=== PATIENT | female | born 1995 | race Caucasian/White ===

== ENCOUNTER 2020-06-08 11:35 | Emergency (ER) | payer MEDICAID ==
[~2020-06-08] VITALS: Ht 170.2 cm; Wt 60.8 kg
[2020-06-08 11:36] VITALS: BP 173/107
--- NOTE | 2020-06-08 11:50 | NUR ---
URINE CLEAN CATCH SENT TO LAB
[2020-06-08 12:19] LABS: BASOPHILS % (AUTO) 1 % (0-1); EOSINOPHILS % (AUTO) 1 % (1-7); LYMPHOCYTES % (AUTO) 28 % (22-44); MEAN CORPUSCULAR HEMOGLOBIN 31.1 pg (27.0-34.8); MEAN CORPUSCULAR HGB CONC 33.8 g/dL (32.4-35.8); MEAN PLATELET VOLUME 8.5 fL (7.4-10.4); MONOCYTES % (AUTO) 8 % (2-9); NEUTROPHILS % (AUTO) 62 % (42-75); PLATELET COUNT 368 x10^3/uL (130-400); RED BLOOD COUNT 4.29 x10^6/uL (3.82-5.3); RED CELL DISTRIBUTION WIDTH 13.1 % (9.6-15.2)
[2020-06-08 12:23] LABS: ALANINE AMINOTRANSFERASE 18 U/L (12-78); ALBUMIN 3.9 g/dL (3.4-5.0); ANION GAP 4 mmol/L (5-15); CALCIUM 8.6 mg/dL (8.5-10.1); CHLORIDE 106 mmol/L (98-107); CREATININE 0.82 mg/dL (0.55-1.02)
[2020-06-08 12:27] LABS: ALKALINE PHOSPHATASE 64 U/L (45-117); BILIRUBIN,TOTAL 0.4 mg/dL (0.2-1.0); MD NO; TOTAL PROTEIN 8.1 g/dL (6.4-8.2)
--- NOTE | 2020-06-08 12:58 | NUR ---
GENERAL FARMER: CALLED FOR ROOM, NO ANSWER
--- NOTE | 2020-06-08 14:36 | NUR ---
NO ANSWER X2 IN LOBBY
== END 2020-06-08 14:55 | disposition left against medical advice (07) ==
LOC: ED 13:30
DX: R10.9 Unspecified abdominal pain (principal); R07.89 Other chest pain
CPT/HCPCS: 36415; 71045; 80053; 83690; 84703; 85025; 99284

== ENCOUNTER 2020-12-08 19:24 | Inpatient (IN) | payer MEDICAID, OTHER ==
[~2020-12-08] VITALS: Ht 170.2 cm; Wt 68.7 kg
[2020-12-08] MEDS ORDERED: SODIUM CHLORIDE 0.9% 1,000ML IVBOLUS ONE ×2 (20:30→21:30)
[2020-12-08 20:53] LABS: MEAN CORPUSCULAR HEMOGLOBIN 31.5 pg (27.0-34.8); MEAN CORPUSCULAR HGB CONC 34.2 g/dL (32.4-35.8); MEAN PLATELET VOLUME 9.3 fL (7.4-10.4); PLATELET COUNT 278 x10^3/uL (130-400); RED BLOOD COUNT 4.86 x10^6/uL (3.82-5.3); RED CELL DISTRIBUTION WIDTH 13.6 % (9.6-15.2)
--- NOTE | 2020-12-08 21:02 | NUR ---
pt reports she was recently seen at [facility] for difficulty breathing and bilat rib pain. reports she has had these symptoms for 2 weeks. she was sent home from with abx and other meds with no imporvement. pt also has c/o decresaed urination for 2 weeks also. pt attached to all monitors, 2 L NC to address hypoxia. PIV placed and all labs drawn. 2 sets of blood cultures also drawn. pt family at bedside.
[2020-12-08 21:03] LABS: ALANINE AMINOTRANSFERASE 13 U/L (12-78); ALBUMIN 3.2 g/dL (3.4-5.0); ANION GAP 16 mmol/L (5-15); CALCIUM 8.5 mg/dL (8.5-10.1); CHLORIDE 94 mmol/L (98-107); CREATININE 2.64 mg/dL (0.55-1.02)
[2020-12-08 21:08] LABS: ALKALINE PHOSPHATASE 69 U/L (45-117); BILIRUBIN,TOTAL 0.7 mg/dL (0.2-1.0); TOTAL PROTEIN 7.6 g/dL (6.4-8.2); TROPONIN I < 0.015 ng/mL (0.000-0.045)
--- NOTE | 2020-12-08 21:20 | NUR ---
dr patrick notified ct to do scans w/o contrast d/t impaired renal function
[2020-12-08 21:23] LABS: BAND#(MANUAL) 0.64 x10^3/uL; BANDS%(MANUAL) 8 % (0-7); LYMPHS% (MANUAL) 15 % (22-44); MONOS#(MANUAL) 0.16 x10^3/uL (0.3-2.7); MONOS% (MANUAL) 2 % (2-9); MYELOCYTES# (MANUAL) 0.08 x10^3/uL (0-0); MYELOCYTES% (MANUAL) 1 % (0-0); SEG#(MANUAL) 5.92 x10^3/uL (1.8-6.8); SEGS% (MANUAL) 74 % (42-75)
[2020-12-08 21:27] LABS: <PLATELET ESTIMATE> ADEQUATE; <RBC MORPHOLOGY> NORMAL; PMNS WITH VACUOLES 1+; TOXIC GRAN 1+
[2020-12-08 21:28] LABS: LARGE PLATELETS 1+
[2020-12-08] MEDS ORDERED: PIPERACILLIN/TAZO 3.375 GM in DEXTROSE 5% 50 ML IVPB ONE (21:30)
[2020-12-08] MEDS ORDERED: VANCOMYCIN PER PHARMACY MC ONE (21:30)
[2020-12-08] MEDS ORDERED: VANCOMYCIN 1,400 MG in SODIUM CHLORIDE 0.9% 250 ML IV ONE (22:00)
[2020-12-08] MEDS ORDERED: MORPHINE SULFATE 4 MG/ML, 1ML ONE (22:08)
[2020-12-08] MEDS ORDERED: ONDANSETRON 2MG/ML, 2ML ONE (22:08)
[2020-12-08 22:28] LABS: MICROSCOPIC INDICATED
[2020-12-08] MEDS ORDERED: MORPHINE SULFATE 4 MG/ML, 1ML IVPush ONE (22:30)
[2020-12-08] MEDS ORDERED: ONDANSETRON 2MG/ML, 2ML IVPush ONE (22:30)
[2020-12-08] MEDS ORDERED: HYDROmorphone 1 MG/ML, 1ML INJ ONE (22:48)
[2020-12-08 22:49] LABS: AMPHETAMINE SCREEN, URINE Positive (Negative); BARBITURATE SCREEN, URINE Negative (Negative); BENZODIAZEPINE SCREEN, URINE Negative (Negative); CANNABINOID SCREEN, URINE Positive (Negative); COCAINE SCREEN, URINE Negative (Negative); METHADONE SCREEN, URINE Negative (Negative); OPIATE SCREEN, URINE Negative (Negative)
--- NOTE | 2020-12-08 22:52 | NUR ---
pt reports no pain relief after morphine. orders recieved from dr patrick for dilaudid and pt medicated for pain a second time.
[2020-12-08] MEDS ORDERED: HYDROmorphone 1 MG/ML, 1ML INJ IV ONE (23:00)
[2020-12-08] MEDS ORDERED: MIDAZOLAM 1 MG/ML, 2ML ONE (23:10)
[2020-12-08] MEDS ORDERED: FENTANYL PF 250 MCG/5ML ONE (23:10)
--- NOTE | 2020-12-08 23:16 | NUR ---
PT REPORTS IMPROVED PAIN.
--- NOTE | 2020-12-08 23:19 | NUR ---
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
[2020-12-08] MEDS ORDERED: ALBUTEROL SULFATE 2.5 MG/3 ML NPPB PRN (23:30)
[2020-12-08] MEDS ORDERED: hydrALAzine 20 MG/ML, 1ML IV PRN (23:30)
[2020-12-08] MEDS ORDERED: LORazepam 2 MG/ML, 1ML IVPush PRN (23:30)
[2020-12-08] MEDS ORDERED: LABETALOL 5MG/ML, 20ML IV PRN (23:30)
[2020-12-08] MEDS ORDERED: MEPERIDINE/PF 25MG/0.5ML IVPush PRN (23:30)
[2020-12-08] MEDS ORDERED: PROMETHAZINE 25 MG/ML, 1ML IVPush PRN (23:30)
[2020-12-08] MEDS ORDERED: FENTANYL PF 100 MCG/2ML IV PRN (23:30)
[2020-12-08] MEDS ORDERED: HYDROmorphone 1 MG/ML, 1ML INJ IVPush PRN (23:30)
[2020-12-09] MEDS ORDERED: VANCOMYCIN PER PHARMACY MC PRN
[2020-12-09] MEDS ORDERED: PHARMACY MAY ADJ FOR RENAL FX MC PRN (00:30)
[2020-12-09] MEDS ORDERED: ROCURONIUM 10MG/ML,5ML ONE (00:48)
[2020-12-09] MEDS ORDERED: SUGAMMADEX 200 MG/2 ML IVPush ONE (00:48)
[2020-12-09] MEDS ORDERED: SUCCINYLCHOLINE 20 MG/ML, 10ML ONE (00:48)
[2020-12-09] MEDS ORDERED: ONDANSETRON 2MG/ML, 2ML ONE (00:48)
[2020-12-09] MEDS ORDERED: PROPOFOL 10 MG/ML, 20ML ONE (00:48)
[2020-12-09] MEDS ORDERED: CEFAZOLIN 1,000 MG ONE (00:48)
[2020-12-09] MEDS ORDERED: FENTANYL PF 100 MCG/2ML ONE (01:26)
[2020-12-09] MEDS ORDERED: MEPERIDINE/PF 25MG/ML,1ML ONE (01:26)
[2020-12-09] MEDS ORDERED: LABETALOL 5MG/ML, 20ML IVPush PRN (02:00)
[2020-12-09 02:15] VITALS: BP 100/66
[2020-12-09] MEDS ORDERED: PHARMACOKINETIC MONITORING MC PRN (03:00)
[2020-12-09] MEDS ORDERED: PHARMACOKINETIC CONSULTATION MC ONE (03:00)
[2020-12-09] MEDS: LACTATED RINGERS 1,000 ML IV SCH ×3 (03:01→20:16)
[2020-12-09 03:57] VITALS: BP 103/66
[2020-12-09] MEDS: PIPERACILLIN/TAZO 3.375 GM in DEXTROSE 5% 50 ML IV SCH ×4 (04:30→22:25)
[2020-12-09] MEDS: morphine SULFATE 10 MG/ML, 1ML IV PRN ×5 (05:28→20:48)
[2020-12-09 05:35] LABS: MEAN CORPUSCULAR HEMOGLOBIN 31.3 pg (27.0-34.8); MEAN CORPUSCULAR HGB CONC 33.9 g/dL (32.4-35.8); MEAN PLATELET VOLUME 9.3 fL (7.4-10.4); PLATELET COUNT 220 x10^3/uL (130-400); RED BLOOD COUNT 4.28 x10^6/uL (3.82-5.3); RED CELL DISTRIBUTION WIDTH 13.8 % (9.6-15.2)
[2020-12-09 05:43] LABS: ANION GAP 10 mmol/L (5-15); CALCIUM 7.3 mg/dL (8.5-10.1); CHLORIDE 105 mmol/L (98-107)
[2020-12-09 06:28] LABS: <RBC MORPHOLOGY> NORMAL; BAND#(MANUAL) 2.74 x10^3/uL; BANDS%(MANUAL) 38 % (0-7); LYMPH#(MANUAL) 0.22 x10^3/uL (1-3.4); LYMPHS% (MANUAL) 3 % (22-44); METAMYELOCYTES# (MANUAL) 0.43 x10^3/uL (0-0); METAMYELOCYTES% (MANUAL) 6 % (0-1); MONOS#(MANUAL) 0.29 x10^3/uL (0.3-2.7); MONOS% (MANUAL) 4 % (2-9); PMNS WITH VACUOLES 1+; SEG#(MANUAL) 3.53 x10^3/uL (1.8-6.8); SEGS% (MANUAL) 49 % (42-75); TOXIC GRAN 1+
[2020-12-09 06:29] LABS: <PLATELET ESTIMATE> ADEQUATE; <PLT MORPHOLOGY> NORMAL PLT MORPH
[2020-12-09 08:15] VITALS: BP 114/73
[2020-12-09] MEDS: PANTOPRAZOLE 40 MG IV IVPush SCH (09:10)
[2020-12-09] MEDS: METRONIDAZOLE PMX 500MG/100ML 100 ML IV SCH ×2 (11:00→17:29)
[2020-12-09] MEDS: VANCOMYCIN 1,000 MG in SODIUM CHLORIDE 0.9% 100 ML IV SCH (12:18)
[2020-12-09] MEDS: LORazepam 2 MG/ML, 1ML IVPush PRN ×2 (14:32→22:37)
[2020-12-09 19:18] VITALS: BP 106/73
[2020-12-10] MEDS: VANCOMYCIN 1,000 MG in SODIUM CHLORIDE 0.9% 100 ML IV SCH ×2 (00:18→12:54)
[2020-12-10] MEDS: morphine SULFATE 10 MG/ML, 1ML IV PRN ×5 (00:19→23:27)
[2020-12-10 00:29] VITALS: BP 102/59
[2020-12-10] MEDS: METRONIDAZOLE PMX 500MG/100ML 100 ML IV SCH ×3 (02:05→18:35)
[2020-12-10] MEDS: PIPERACILLIN/TAZO 3.375 GM in DEXTROSE 5% 50 ML IV SCH ×3 (04:48→17:23)
[2020-12-10 05:07] VITALS: BP 124/72
[2020-12-10] MEDS: LORazepam 2 MG/ML, 1ML IVPush PRN (06:39)
[2020-12-10 07:44] VITALS: BP 126/84
[2020-12-10] MEDS: PANTOPRAZOLE 40 MG IV IVPush SCH (07:52)
[2020-12-10] MEDS: LACTATED RINGERS 1,000 ML IV SCH ×2 (07:53→17:23)
[2020-12-10 08:15] LABS: BASOPHILS % (AUTO) 0 % (0-1); EOSINOPHILS % (AUTO) 1 % (1-7); LYMPHOCYTES % (AUTO) 14 % (22-44); MEAN CORPUSCULAR HEMOGLOBIN 31.6 pg (27.0-34.8); MEAN CORPUSCULAR HGB CONC 33.9 g/dL (32.4-35.8); MEAN PLATELET VOLUME 8.5 fL (7.4-10.4); MONOCYTES % (AUTO) 9 % (2-9); NEUTROPHILS % (AUTO) 76 % (42-75); PLATELET COUNT 220 x10^3/uL (130-400); RED BLOOD COUNT 3.58 x10^6/uL (3.82-5.3); RED CELL DISTRIBUTION WIDTH 13.9 % (9.6-15.2)
[2020-12-10] MEDS: HEPARIN 5,000 UNITS/ML, 1ML SQ SCH ×2 (08:23→16:23)
[2020-12-10 08:26] LABS: ANION GAP 5 mmol/L (5-15); CALCIUM 8.4 mg/dL (8.5-10.1); CHLORIDE 106 mmol/L (98-107); CREATININE 0.96 mg/dL (0.55-1.02)
[2020-12-10 12:21] VITALS: BP 122/75
[2020-12-10 15:34] VITALS: BP 117/72
[2020-12-10] MEDS: NICOTINE 14MG/24 HR PATCH.TD24 TD SCH (17:23)
[2020-12-10 19:10] VITALS: BP 122/77
[2020-12-10] MEDS: VANCOMYCIN 1,200 MG in SODIUM CHLORIDE 0.9% 250 ML IV SCH (22:37)
[2020-12-11 00:10] VITALS: BP 119/82
[2020-12-11] MEDS: PIPERACILLIN/TAZO 3.375 GM in DEXTROSE 5% 50 ML IV SCH ×4 (00:43→18:48)
[2020-12-11] MEDS: HEPARIN 5,000 UNITS/ML, 1ML SQ SCH ×4 (00:43→23:05)
[2020-12-11] MEDS: METRONIDAZOLE PMX 500MG/100ML 100 ML IV SCH ×3 (03:12→19:31)
[2020-12-11] MEDS: LACTATED RINGERS 1,000 ML IV SCH ×2 (03:12→10:52)
[2020-12-11 04:50] VITALS: BP 132/87
[2020-12-11 07:21] VITALS: BP 134/88
[2020-12-11] MEDS: PANTOPRAZOLE 40 MG IV IVPush SCH (07:53)
[2020-12-11 12:20] VITALS: BP 131/85
[2020-12-11] MEDS: VANCOMYCIN 1,200 MG in SODIUM CHLORIDE 0.9% 250 ML IV SCH (13:46)
[2020-12-11] MEDS: FLUCONAZOLE 400 MG/200 ML 200 ML IV SCH (16:40)
[2020-12-11 17:24] VITALS: BP 139/96
[2020-12-11] MEDS: NICOTINE 14MG/24 HR PATCH.TD24 TD SCH (17:28)
[2020-12-11] MEDS: morphine SULFATE 10 MG/ML, 1ML IV PRN ×2 (17:29→23:05)
[2020-12-11 19:31] VITALS: BP 126/80
[2020-12-12] MEDS: PIPERACILLIN/TAZO 3.375 GM in DEXTROSE 5% 50 ML IV SCH ×4 (00:37→20:40)
[2020-12-12] MEDS: VANCOMYCIN 1,200 MG in SODIUM CHLORIDE 0.9% 250 ML IV SCH ×3 (01:13→21:22)
[2020-12-12 01:56] VITALS: BP 143/79
[2020-12-12] MEDS: METRONIDAZOLE PMX 500MG/100ML 100 ML IV SCH ×3 (03:52→19:35)
[2020-12-12] MEDS: LACTATED RINGERS 1,000 ML IV SCH (03:55)
[2020-12-12] MEDS: PANTOPRAZOLE 40 MG IV IVPush SCH (06:02)
[2020-12-12] MEDS: morphine SULFATE 10 MG/ML, 1ML IV PRN ×3 (06:03→21:22)
[2020-12-12 06:06] LABS: BASOPHILS % (AUTO) 1 % (0-1); EOSINOPHILS % (AUTO) 1 % (1-7); LYMPHOCYTES % (AUTO) 20 % (22-44); MEAN CORPUSCULAR HEMOGLOBIN 31.4 pg (27.0-34.8); MEAN PLATELET VOLUME 8.2 fL (7.4-10.4); MONOCYTES % (AUTO) 12 % (2-9); NEUTROPHILS % (AUTO) 67 % (42-75); PLATELET COUNT 211 x10^3/uL (130-400); RED BLOOD COUNT 3.29 x10^6/uL (3.82-5.3); RED CELL DISTRIBUTION WIDTH 13.8 % (9.6-15.2)
[2020-12-12 06:07] LABS: ANION GAP 8 mmol/L (5-15); CALCIUM 8.1 mg/dL (8.5-10.1); CHLORIDE 103 mmol/L (98-107)
[2020-12-12 06:08] LABS: CREATININE 0.63 mg/dL (0.55-1.02)
[2020-12-12] MEDS: HEPARIN 5,000 UNITS/ML, 1ML SQ SCH ×3 (07:39→23:47)
[2020-12-12 08:03] VITALS: BP 141/71
[2020-12-12] MEDS ORDERED: POTASSIUM CHLORIDE 40 MEQ in SODIUM CHLORIDE 0.9% 500 ML IV ONE (09:00)
[2020-12-12] MEDS: OXYcodone 5 MG/5 ML ORAL.SOL UDC PO PRN ×2 (09:43→14:39)
[2020-12-12 12:37] VITALS: BP 144/88
[2020-12-12] MEDS: FLUCONAZOLE 400 MG/200 ML 200 ML IV SCH (16:12)
[2020-12-12] MEDS: NICOTINE 14MG/24 HR PATCH.TD24 TD SCH (16:28)
[2020-12-12] MEDS: ONDANSETRON 2MG/ML, 2ML IVPush PRN (16:28)
[2020-12-12 18:26] VITALS: BP 152/89
[2020-12-13 01:57] VITALS: BP 130/82
[2020-12-13] MEDS: PIPERACILLIN/TAZO 3.375 GM in DEXTROSE 5% 50 ML IV SCH ×4 (02:54→20:46)
[2020-12-13] MEDS: METRONIDAZOLE PMX 500MG/100ML 100 ML IV SCH ×3 (03:41→19:46)
[2020-12-13] MEDS: VANCOMYCIN 1,200 MG in SODIUM CHLORIDE 0.9% 250 ML IV SCH ×3 (04:55→21:36)
[2020-12-13] MEDS: morphine SULFATE 10 MG/ML, 1ML IV PRN ×2 (05:02→10:23)
[2020-12-13 05:14] LABS: ANION GAP 8 mmol/L (5-15); CALCIUM 7.6 mg/dL (8.5-10.1); CHLORIDE 104 mmol/L (98-107)
[2020-12-13 05:20] LABS: CREATININE 0.66 mg/dL (0.55-1.02)
[2020-12-13] MEDS ORDERED: POTASSIUM CHLORIDE 20 MEQ TAB.ER.PRT PO ONE (08:00)
[2020-12-13 08:15] VITALS: BP 146/92
[2020-12-13] MEDS: ONDANSETRON 2MG/ML, 2ML IVPush PRN (08:15)
[2020-12-13] MEDS: PANTOPRAZOLE 40 MG IV IVPush SCH (08:16)
[2020-12-13] MEDS: HEPARIN 5,000 UNITS/ML, 1ML SQ SCH ×2 (08:17→16:28)
[2020-12-13 13:25] VITALS: BP 145/83
[2020-12-13] MEDS: OXYcodone IR 5MG TABLET PO PRN ×3 (13:36→21:35)
[2020-12-13] MEDS: FLUCONAZOLE 400 MG/200 ML 200 ML IV SCH (16:28)
[2020-12-13] MEDS: NICOTINE 14MG/24 HR PATCH.TD24 TD SCH (17:00)
[2020-12-13 18:29] VITALS: BP 135/89
[2020-12-14] MEDS: HEPARIN 5,000 UNITS/ML, 1ML SQ SCH ×2 (00:40→09:57)
[2020-12-14] MEDS: PIPERACILLIN/TAZO 3.375 GM in DEXTROSE 5% 50 ML IV SCH ×2 (02:30→10:59)
[2020-12-14 02:46] VITALS: BP 142/91
[2020-12-14] MEDS: OXYcodone IR 5MG TABLET PO PRN ×4 (02:54→14:36)
[2020-12-14] MEDS: METRONIDAZOLE PMX 500MG/100ML 100 ML IV SCH ×2 (03:53→12:29)
[2020-12-14 05:21] LABS: BASOPHILS % (AUTO) 1 % (0-1); EOSINOPHILS % (AUTO) 2 % (1-7); LYMPHOCYTES % (AUTO) 14 % (22-44); MEAN CORPUSCULAR HEMOGLOBIN 31.2 pg (27.0-34.8); MEAN CORPUSCULAR HGB CONC 34.3 g/dL (32.4-35.8); MEAN PLATELET VOLUME 8.3 fL (7.4-10.4); MONOCYTES % (AUTO) 8 % (2-9); NEUTROPHILS % (AUTO) 75 % (42-75); PLATELET COUNT 264 x10^3/uL (130-400); RED BLOOD COUNT 2.72 x10^6/uL (3.82-5.3); RED CELL DISTRIBUTION WIDTH 13.5 % (9.6-15.2)
[2020-12-14 05:31] LABS: ALBUMIN 1.8 g/dL (3.4-5.0); ANION GAP 9 mmol/L (5-15); CALCIUM 7.9 mg/dL (8.5-10.1); CHLORIDE 103 mmol/L (98-107)
[2020-12-14 05:34] LABS: ALANINE AMINOTRANSFERASE 11 U/L (12-78); ALKALINE PHOSPHATASE 39 U/L (45-117); BILIRUBIN,TOTAL 0.5 mg/dL (0.2-1.0); CREATININE 0.51 mg/dL (0.55-1.02); TOTAL PROTEIN 5.2 g/dL (6.4-8.2); VANCOMYCIN,TROUGH 22.9 mcg/mL (5.0-10.0)
[2020-12-14] MEDS: VANCOMYCIN 1,200 MG in SODIUM CHLORIDE 0.9% 250 ML IV SCH ×2 (05:57→14:54)
[2020-12-14] MEDS ORDERED: POTASSIUM CHLORIDE 40 MEQ in SODIUM CHLORIDE 0.9% 500 ML IV ONE (07:30)
[2020-12-14] MEDS ORDERED: MAGNESIUM SULFATE PMX 4GM/100M 100 ML IVPB ONE (07:30)
[2020-12-14 07:51] VITALS: BP 138/83
[2020-12-14] MEDS: PANTOPRAZOLE 40 MG IV IVPush SCH (10:59)
[2020-12-14 14:22] VITALS: BP 129/73
[2020-12-14] MEDS ORDERED: CIPR500T87 PO (14:54)
[2020-12-14] MEDS ORDERED: FLUC200T PO (14:54)
[2020-12-14] MEDS ORDERED: METR500T PO (14:54)
[2020-12-14] MEDS ORDERED: OXYC5TAB98 PO (14:55)
== END 2020-12-14 16:30 | disposition home or self-care (01) | DRG 853 ==
LOC: ED 22:51 → EDIP 12-09 00:08 → 4NE 12-09 02:11
PROVIDERS: ADMIT Family Medicine; ATTEND Internal Medicine
PROC: 0W9G30Z Drainage of Peritoneal Cavity with Drainage Device, Percutaneous Approach (ICD-10-PCS; 2020-12-08)
PROC: 0DU607Z Supplement Stomach with Autologous Tissue Substitute, Open Approach (ICD-10-PCS; principal; 2020-12-08 23:15)
DX: A41.9 Sepsis, unspecified organism (principal); K25.0 Acute gastric ulcer with hemorrhage; K65.9 Peritonitis, unspecified; E87.1 Hypo-osmolality and hyponatremia; K63.0 Abscess of intestine; N17.9 Acute kidney failure, unspecified; N39.0 Urinary tract infection, site not specified; R65.20 Severe sepsis without septic shock; F12.10 Cannabis abuse, uncomplicated; F15.10 Other stimulant abuse, uncomplicated; E86.0 Dehydration
CPT/HCPCS: 36415; 71045; 71250; 74176; 74240; 80048; 80053; 80202; 80307; 80320; 81001; 82550; 83605; 83690; 83735; 84100; 84145; 84484; 84703; 85025; 87015; 87040; 87070; 87075; 87086; 87106; 87116; 87176; 87205; 87206; 87491; 87591; 87635; 93005; 96374; C1729; G0378; J0690; J1170; J1450; J1644; J2175; J2250; J2405; J2543; J2704; J3010; J3370; J3480; C1765; C9113; G0480; J0330; J2060; J2270; J7030; J7040; J7050; J7120